=== PATIENT | female | born 1960 | race Caucasian/White ===

== ENCOUNTER 2017-11-19 13:21 | Emergency (ER) | payer OTHER ==
[~2017-11-19] VITALS: Ht 165.1 cm; Wt 72.6 kg
[~2017-11-19 13:21] MED LIST: CIPROFLOXACIN500 MG PO; CYCLOBENZAPRINE10 MG PO; DAYPRO600 M1 PO; ENDOCET 325 MG-1 TA5 PO; MOBIC15 MG PO; MOTRIN800 MG PO; MS CONTIN30 MG PO; NEURONTIN600 MG PO; OXYCODONE5 MG PO; PEN-VEE K500 MG PO; PREDNISONE10 MG PO; PYRIDIUM200 MG PO; ROBAXIN750 MG PO; TRAMADOL HCL50 MG PO; TRIMOX500 MG PO; VICODIN 5/500 505 MG PO; VICODIN 500 MG-1 TAB PO; VISTARIL50 MG PO
[2017-11-19] MEDS ORDERED: ASPIRIN ADULT L81 M2 PO (13:57)
[2017-11-19] MEDS ORDERED: AMLODIPINE BESYL5 MG PO (13:57)
[2017-11-19] MEDS ORDERED: METOPROLOL TART50 M1 PO (13:57)
[2017-11-19] MEDS ORDERED: KLOR-CON M2020 ME1 PO (13:57)
[2017-11-19] MEDS ORDERED: CVS SPECTRAVIT PO (13:58)
[2017-11-19] MEDS ORDERED: VITAMIN D-32000 UNIT PO (13:58)
[2017-11-19] MEDS ORDERED: PROVENTIL HFA6.7 GM INH (13:58)
[2017-11-19] MEDS ORDERED: VENLAFAXINE HYD75 M3 PO (13:59)
[2017-11-19] MEDS ORDERED: CYCLOBENZAPRINE10 MG PO (15:40)
[2017-11-19] MEDS ORDERED: MEDROL DOSEPAK4 MG PO (15:40)
== END 2017-11-19 16:00 | disposition home or self-care (01) ==
LOC: ED 13:21
DX: M54.12 Radiculopathy, cervical region (principal); F17.200 Nicotine dependence, unspecified, uncomplicated; G89.29 Other chronic pain; Z79.82 Long term (current) use of aspirin; Z79.899 Other long term (current) drug therapy; Z88.5 Allergy status to narcotic agent; Z88.6 Allergy status to analgesic agent

== ENCOUNTER 2018-01-30 23:10 | Emergency (ER) | payer OTHER ==
[~2018-01-30] VITALS: Ht 165.1 cm; Wt 72.6 kg
[~2018-01-30 23:10] MED LIST changes: +AMLODIPINE BESYL5 MG PO; +ASPIRIN ADULT L81 M2 PO; +CVS SPECTRAVIT PO; +KLOR-CON M2020 ME1 PO; +MEDROL DOSEPAK4 MG PO; +METOPROLOL TART50 M1 PO; +PROVENTIL HFA6.7 GM INH; +VENLAFAXINE HYD75 M3 PO; +VITAMIN D-32000 UNIT PO
[2018-01-31] MEDS ORDERED: AUGMENTIN 875875 MG PO (00:21)
== END 2018-01-31 01:04 | disposition home or self-care (01) ==
LOC: ED 23:10
DX: S01.85XA Open bite of other part of head, initial encounter (principal); F17.200 Nicotine dependence, unspecified, uncomplicated; Z23 Encounter for immunization; Z79.899 Other long term (current) drug therapy; Z79.82 Long term (current) use of aspirin; W54.0XXA Bitten by dog, initial encounter; Y93.89 Activity, other specified; Y92.89 Other specified places as the place of occurrence of the external cause; Y99.9 Unspecified external cause status

== ENCOUNTER 2021-07-07 21:40 | Inpatient (IN) | payer OTHER ==
[~2021-07-07] VITALS: Ht 157.4 cm; Wt 68.5 kg
[~2021-07-07 21:40] MED LIST changes: +AUGMENTIN 875875 MG PO
[2021-07-07 21:49] VITALS: BP 163/99
[2021-07-07 22:18] LABS: BASO % 0.3 % (0.0-1.0); EOS # 0.2 10*3/uL (0.0-0.4); EOS % 1.3 % (1.0-4.0); HEMATOCRIT 39.4 % (37.0-47.0); LYMPH # 1.5 10*3/uL (1.3-4.4); MEAN CELL VOLUME 91.8 fl (81.0-99.0); MEAN CORPUSCULAR HGB 30.1 pg (27.0-31.0); MEAN CORPUSCULAR HGB CONC 32.7 g/dl (33.0-37.0); MEAN PLATELET VOLUME 8.5 fl (9.6-12.3); MONO # 0.8 10*3/uL (0.1-1.0); NEUT # 8.9 10*3/uL (2.3-7.9); NEUT % 77.9 % (47.0-73.0); PLATELET COUNT AUTOMATED 363 10*3/uL (130-400); RED BLOOD COUNT 4.29 10*6/uL (4.10-5.10); RED CELL DISTRI WIDTH 13.5 % (0-14.5); WHITE BLOOD COUNT 11.4 10*3/uL (4.8-10.8)
[2021-07-07 22:37] LABS: ALBUMIN 2.6 gm/dl (3.1-4.5); ALKALINE PHOSPHATASE 74 U/L (45-117); BUN 8 mg/dl (7-24); CHLORIDE 101 mmol/L (98-107); CREATININE 0.49 mg/dL (0.55-1.02); POTASSIUM 3.8 mmol/L (3.5-5.1); SGOT/AST 31 IU/L (3-35); SGPT/ALT 33 U/L (12-78); SODIUM 135 mmol/L (136-145); TOTAL PROTEIN 6.8 gm/dL (6.4-8.2)
[2021-07-07 22:38] LABS: ACT PARTIAL THROMBO TIME 29.9 SECONDS (20.0-32.1); INTERNATIONAL NORM RATIO 1.1 (2.0-3.5)
[2021-07-07 22:40] LABS: TROPONIN I < 0.015 ng/ml (<0.045)
[2021-07-08] VITALS (9 sets, daily range): BP systolic 127–162; BP diastolic 71–96
[2021-07-08 02:41] LABS: BILIRUBIN Negative (Negative); BLOOD Negative (Negative); CLARITY Clear (Clear); COLOR Yellow (Yellow); GLUCOSE Negative (Negative); KETONE Negative (Negative); LEUKO ESTERASE Negative (Negative); NITRITE Negative (Negative)
[2021-07-08 02:51] LABS: PH 8.5 (4.5-8.0)
[2021-07-08 02:52] LABS: RBC 0-2 rbc/hpf (0-2); WBC 0-2 wbc/hpf (0-5)
[2021-07-08 05:24] LABS: ABG BASE EXCESS 5.1 mmol/L (-2.0-2.0); ARTERIAL BLOOD GAS PH 7.488 (7.35-7.45); ARTERIAL BLOOD GAS PO2 57.7 (80-90)
[2021-07-08 05:52] LABS: ALBUMIN 2.5 gm/dl (3.1-4.5); ALKALINE PHOSPHATASE 76 U/L (45-117); BUN 5 mg/dl (7-24); CHLORIDE 99 mmol/L (98-107); CREATININE 0.38 mg/dL (0.55-1.02); POTASSIUM 3.6 mmol/L (3.5-5.1); SGOT/AST 31 IU/L (3-35); SGPT/ALT 29 U/L (12-78); SODIUM 133 mmol/L (136-145); TOTAL PROTEIN 6.7 gm/dL (6.4-8.2)
[2021-07-08 05:59] LABS: THYROID STIM HORMONE (HS) 0.992 uIU/ml (0.358-4.75)
[2021-07-08 06:11] LABS: BASO % 0.3 % (0.0-1.0); EOS # 0.1 10*3/uL (0.0-0.4); LYMPH % 8.3 % (27.0-41.0); MEAN CELL VOLUME 91.7 fl (81.0-99.0); MEAN CORPUSCULAR HGB CONC 32.8 g/dl (33.0-37.0); MEAN PLATELET VOLUME 8.7 fl (9.6-12.3); MONO # 0.8 10*3/uL (0.1-1.0); MONO % 6.2 % (3.0-9.0); NEUT # 10.4 10*3/uL (2.3-7.9); NEUT % 83.9 % (47.0-73.0); PLATELET COUNT AUTOMATED 348 10*3/uL (130-400); RED BLOOD COUNT 4.36 10*6/uL (4.10-5.10); RED CELL DISTRI WIDTH 13.2 % (0-14.5); WHITE BLOOD COUNT 12.5 10*3/uL (4.8-10.8)
[2021-07-08 06:57] LABS: ACT PARTIAL THROMBO TIME 31.8 SECONDS (20.0-32.1); INTERNATIONAL NORM RATIO 1.1 (2.0-3.5)
[2021-07-08 07:48] LABS: ABG BASE EXCESS 3.5 mmol/L (-2.0-2.0); ARTERIAL BLOOD GAS PH 7.496 (7.35-7.45)
[2021-07-08 09:15] LABS: VITAMIN D, 25-HYDROXY 33.6 ng/mL (30-100)
[2021-07-09] VITALS: BP 133/76
[2021-07-09 08:00] VITALS: BP 152/85
[2021-07-09 12:00] VITALS: BP 130/78
[2021-07-09 16:00] VITALS: BP 134/77
[2021-07-09 20:00] VITALS: BP 134/77
[2021-07-10] VITALS: BP 132/76; BP 144/91
[2021-07-10] MEDS ORDERED: PROAIR HFA8.5 GM INH (00:33)
[2021-07-10] MEDS ORDERED: ATORVASTATIN CA40 M1 PO (00:34)
[2021-07-10] MEDS ORDERED: NEURONTIN800 MG PO (00:35)
[2021-07-10 06:41] LABS: BASO % 0.1 % (0.0-1.0); EOS % 0.1 % (1.0-4.0); LYMPH # 1.4 10*3/uL (1.3-4.4); LYMPH % 9.5 % (27.0-41.0); MEAN CELL VOLUME 91.1 fl (81.0-99.0); MEAN CORPUSCULAR HGB 30.2 pg (27.0-31.0); MEAN CORPUSCULAR HGB CONC 33.2 g/dl (33.0-37.0); MEAN PLATELET VOLUME 8.6 fl (9.6-12.3); MONO # 0.9 10*3/uL (0.1-1.0); MONO % 6.3 % (3.0-9.0); NEUT # 12.4 10*3/uL (2.3-7.9); NEUT % 83.4 % (47.0-73.0); PLATELET COUNT AUTOMATED 439 10*3/uL (130-400); RED BLOOD COUNT 4.83 10*6/uL (4.10-5.10); RED CELL DISTRI WIDTH 13.2 % (0-14.5); WHITE BLOOD COUNT 14.9 10*3/uL (4.8-10.8)
[2021-07-10 07:21] LABS: ALBUMIN 2.5 gm/dl (3.1-4.5); BUN 22 mg/dl (7-24); CHLORIDE 99 mmol/L (98-107); CREATININE 0.58 mg/dL (0.55-1.02); POTASSIUM 3.7 mmol/L (3.5-5.1); SGOT/AST 27 IU/L (3-35); SGPT/ALT 36 U/L (12-78); SODIUM 134 mmol/L (136-145)
[2021-07-10 07:23] LABS: ALKALINE PHOSPHATASE 71 U/L (45-117); CPK 83 U/L (26-192)
[2021-07-10 09:00] VITALS: BP 119/84
[2021-07-10 12:00] VITALS: BP 117/78
[2021-07-10 16:00] VITALS: BP 130/83
[2021-07-10 20:00] VITALS: BP 135/88
[2021-07-11] VITALS: BP 140/82; BP 149/91
[2021-07-11 06:50] LABS: ALBUMIN 2.5 gm/dl (3.1-4.5); ALKALINE PHOSPHATASE 68 U/L (45-117); BUN 21 mg/dl (7-24); CHLORIDE 102 mmol/L (98-107); CREATININE 0.41 mg/dL (0.55-1.02); POTASSIUM 3.9 mmol/L (3.5-5.1); SGOT/AST 24 IU/L (3-35); SGPT/ALT 35 U/L (12-78); SODIUM 134 mmol/L (136-145); TOTAL PROTEIN 6.8 gm/dL (6.4-8.2)
[2021-07-11 06:54] LABS: BASO % 0.1 % (0.0-1.0); EOS % 0.2 % (1.0-4.0); HEMATOCRIT 41.4 % (37.0-47.0); LYMPH % 14.8 % (27.0-41.0); MEAN CELL VOLUME 90.4 fl (81.0-99.0); MEAN CORPUSCULAR HGB 30.1 pg (27.0-31.0); MEAN CORPUSCULAR HGB CONC 33.3 g/dl (33.0-37.0); MEAN PLATELET VOLUME 8.8 fl (9.6-12.3); MONO # 0.9 10*3/uL (0.1-1.0); MONO % 6.9 % (3.0-9.0); NEUT # 10.5 10*3/uL (2.3-7.9); NEUT % 77.6 % (47.0-73.0); PLATELET COUNT AUTOMATED 450 10*3/uL (130-400); RED BLOOD COUNT 4.58 10*6/uL (4.10-5.10); RED CELL DISTRI WIDTH 13.2 % (0-14.5); WHITE BLOOD COUNT 13.6 10*3/uL (4.8-10.8)
[2021-07-11 08:00] VITALS: BP 114/78
[2021-07-11 12:00] VITALS: BP 105/71
[2021-07-11] MEDS ORDERED: PREDNISONE10 MG PO (14:14)
[2021-07-11] MEDS ORDERED: AVPAK AZITHROM250 M1 PO (14:14)
[2021-07-11] MEDS ORDERED: OMNICEF300 MG PO (14:14)
[2021-07-11 16:00] VITALS: BP 103/69
[2021-07-11 20:00] VITALS: BP 117/71
[2021-07-12] VITALS: BP 128/75
[2021-07-12 06:21] LABS: BASO % 0.2 % (0.0-1.0); EOS # 0.2 10*3/uL (0.0-0.4); LYMPH # 2.2 10*3/uL (1.3-4.4); LYMPH % 18.8 % (27.0-41.0); MEAN CELL VOLUME 92.4 fl (81.0-99.0); MEAN CORPUSCULAR HGB 30.9 pg (27.0-31.0); MEAN CORPUSCULAR HGB CONC 33.5 g/dl (33.0-37.0); MEAN PLATELET VOLUME 8.7 fl (9.6-12.3); MONO # 0.7 10*3/uL (0.1-1.0); MONO % 5.7 % (3.0-9.0); NEUT # 8.5 10*3/uL (2.3-7.9); NEUT % 72.9 % (47.0-73.0); PLATELET COUNT AUTOMATED 380 10*3/uL (130-400); RED BLOOD COUNT 4.33 10*6/uL (4.10-5.10); RED CELL DISTRI WIDTH 13.5 % (0-14.5); WHITE BLOOD COUNT 11.7 10*3/uL (4.8-10.8)
[2021-07-12 06:40] LABS: ALBUMIN 2.5 gm/dl (3.1-4.5); ALKALINE PHOSPHATASE 67 U/L (45-117); BUN 25 mg/dl (7-24); CHLORIDE 103 mmol/L (98-107); CREATININE 0.47 mg/dL (0.55-1.02); POTASSIUM 3.8 mmol/L (3.5-5.1); SGOT/AST 22 IU/L (3-35); SGPT/ALT 33 U/L (12-78); SODIUM 135 mmol/L (136-145); TOTAL PROTEIN 6.7 gm/dL (6.4-8.2)
[2021-07-12 08:00] VITALS: BP 96/67
[2021-07-12 08:42] VITALS: BP 96/68
[2021-07-12 12:00] VITALS: BP 107/72
[2021-07-12 16:00] VITALS: BP 106/60
== END 2021-07-12 17:29 | disposition home or self-care (01) | DRG 720 ==
LOC: ED 21:40 → EDHOLD 07-08 03:39 → 4E 07-08 03:39 → EDHOLD 07-08 04:47 → 4E 07-08 09:02
PROVIDERS: Emergency Medicine; Family Medicine; Hospitalist; ADMIT Emergency Medicine; ATTEND Emergency Medicine
PROC: 5A0935A Assistance with Respiratory Ventilation, Less than 24 Consecutive Hours, High Flow/Velocity Cannula (ICD-10-PCS; principal; 2021-07-07)
PROC: 5A0935A Assistance with Respiratory Ventilation, Less than 24 Consecutive Hours, High Flow/Velocity Cannula (ICD-10-PCS; 2021-07-08)
PROC: 5A09357 Assistance with Respiratory Ventilation, Less than 24 Consecutive Hours, Continuous Positive Airway Pressure (ICD-10-PCS; 2021-07-08)
PROC: 5A09357 Assistance with Respiratory Ventilation, Less than 24 Consecutive Hours, Continuous Positive Airway Pressure (ICD-10-PCS; 2021-07-09)
PROC: 5A0945A Assistance with Respiratory Ventilation, 24-96 Consecutive Hours, High Flow/Velocity Cannula (ICD-10-PCS; 2021-07-09)
DX: A41.9 Sepsis, unspecified organism (principal); R65.20 Severe sepsis without septic shock; J41.1 Mucopurulent chronic bronchitis; E43 Unspecified severe protein-calorie malnutrition; J18.9 Pneumonia, unspecified organism; Z20.822 Contact with and (suspected) exposure to COVID-19; E87.1 Hypo-osmolality and hyponatremia; J96.01 Acute respiratory failure with hypoxia; I10 Essential (primary) hypertension; E78.2 Mixed hyperlipidemia; R73.9 Hyperglycemia, unspecified; D47.3 Essential (hemorrhagic) thrombocythemia; Z90.710 Acquired absence of both cervix and uterus; Z98.891 History of uterine scar from previous surgery; Z82.5 Family history of asthma and other chronic lower respiratory diseases; Z88.5 Allergy status to narcotic agent; Z88.6 Allergy status to analgesic agent; Z79.82 Long term (current) use of aspirin; Z79.899 Other long term (current) drug therapy; Z68.28 Body mass index [BMI] 28.0-28.9, adult

== ENCOUNTER 2021-10-10 10:03 | Emergency (ER) | payer OTHER ==
[~2021-10-10] VITALS: Ht 165.1 cm; Wt 63.5 kg
[~2021-10-10 10:03] MED LIST changes: +ATORVASTATIN CA40 M1 PO; +AVPAK AZITHROM250 M1 PO; +NEURONTIN800 MG PO; +OMNICEF300 MG PO; +PROAIR HFA8.5 GM INH
[2021-10-10 12:12] LABS: BASO # 0.1 10*3/uL (0.0-0.1); BASO % 0.8 % (0.0-1.0); EOS # 0.2 10*3/uL (0.0-0.4); EOS % 2.5 % (1.0-4.0); HEMATOCRIT 37.1 % (37.0-47.0); LYMPH # 1.7 10*3/uL (1.3-4.4); LYMPH % 22.5 % (27.0-41.0); MEAN CELL VOLUME 88.8 fl (81.0-99.0); MEAN CORPUSCULAR HGB 28.7 pg (27.0-31.0); MEAN CORPUSCULAR HGB CONC 32.3 g/dl (33.0-37.0); MONO # 0.5 10*3/uL (0.1-1.0); MONO % 6.2 % (3.0-9.0); NEUT # 5.1 10*3/uL (2.3-7.9); NEUT % 67.6 % (47.0-73.0); PLATELET COUNT AUTOMATED 313 10*3/uL (130-400); RED BLOOD COUNT 4.18 10*6/uL (4.10-5.10); RED CELL DISTRI WIDTH 15.1 % (0-14.5); WHITE BLOOD COUNT 7.6 10*3/uL (4.8-10.8)
[2021-10-10 12:28] LABS: ALBUMIN 2.4 gm/dl (3.1-4.5); ALKALINE PHOSPHATASE 62 U/L (45-117); BUN 2 mg/dl (7-24); CHLORIDE 99 mmol/L (98-107); CREATININE 0.43 mg/dL (0.55-1.02); POTASSIUM 4.1 mmol/L (3.5-5.1); SGOT/AST 27 IU/L (3-35); SGPT/ALT 15 U/L (12-78); SODIUM 133 mmol/L (136-145); TOTAL PROTEIN 6.5 gm/dL (6.4-8.2)
[2021-10-10] MEDS ORDERED: ZITHROMAX250 MG PO (14:36)
== END 2021-10-10 14:50 | disposition home or self-care (01) ==
LOC: ED 10:03
PROVIDERS: Physician Assistant
DX: J18.9 Pneumonia, unspecified organism (principal)